=== PATIENT | female | born 1985 | race Caucasian/White ===

== ENCOUNTER → 2019-07-05 17:26 | Outpatient (BNVA) | payer MEDICARE, MEDICAID, SELFPAY | PROVIDERS: Family Provider Nurse Practitioner Family; PCP Nurse Practitioner Family; Visit Provider Emergency Medicine | DX: R05 Cough (principal); R68.89 Other general symptoms and signs | CPT/HCPCS: 71046; 87804 ==

== ENCOUNTER 2020-01-07 15:08 | Inpatient (IN) | payer MEDICARE, MEDICAID, SELFPAY ==
[2020-01-07 15:09] VITALS: BP 149/90; PULSE 83; RESP 18; TEMP 36.4; O2SAT 98; BMI 34.2
--- NOTE | 2020-01-07 15:24 | W.ED.PSYCH ---
Documented by User: IZZY Valentine 01/08/20 07:28 HPI - Psych General: Chief Complaint: Psychiatric Symptoms Stated Complaint: PSYCH EVAL Time Seen by Provider: 01/07/20 15:14 History of Present Illness: HPI Narrative: Patient is a 34-year-old female who comes to the ED for psych eval. Patient has a past medical history of psychosis, bipolar and delusional disorder. Patient says she has had trouble sleeping for a while now. She says she is very anxious. She is worried right now that someone is stealing her identity. She was very vague about her reasoning for why she thinks someone stole her identity and would not give any real details to me. She denies any auditory or visual hallucinations. She also denies any depression, SI or HI. [facility] called in report and stated that patient is being very paranoid and thinks that the government is after because she and [place] to obtain a green card. After being discharged from [facility] she obtained a criminal trespassing charge. They stated that patient's family is trying to obtain guardianship of patient because she is not safe at home. Associated symptoms: Reports delusions; Deny auditory hallucinations, visual hallucinations, homicidal ideation or suicidal ideation Review of Systems Const: Denies: fever(s), chills or fatigue Eyes: Denies: change in vision or eye discomfort ENMT: Denies: throat pain, odynophagia, nasal discharge or nasal congestion Card: Denies: chest pain, palpitations, edema, swelling of feet/ankles, dyspnea on exertion or orthopnea Resp: Denies: dyspnea, productive cough or non-productive cough GI: Denies: abdominal pain, nausea, vomiting, diarrhea, constipation or hematochezia : Denies: flank pain, dysuria or hematuria Musc: Denies: neck pain, back pain or extremity swelling Skin/Breast: Denies: rash or new lesions Neuro: Denies: headache(s), numbness in extremities or weakness in extremities Psych: Reports: anxiety, sleeping less, loss of interest and paranoia; Denies: visual hallucinations, auditory hallucinations, suicidal ideation or homicidal ideation PFS ED PFSH: Family History Mother Hypertension Father Hypertension Denies family history of Diabetes Stroke Social History Smoking and tobacco status: former smoker Physical Exam Const: COMMON NORMALS: patient oriented x3 HENMT: COMMON NORMALS: normocephalic HEAD & SCALP: normocephalic MOUTH: Normal oral and palatal mucosa present THROAT: posterior oropharynx normal and uvula midline Neck/C-Spine: COMMON NORMALS: supple GENERAL: Yes normal visual inspection Resp: COMMON NORMALS: normal respiratory effort, No retractions, No use of accessory muscles and clear to auscultation bilaterally AUSCULTATION: clear to auscultation bilaterally Cardio: COMMON NORMALS: regular rate, regular rhythm, S1 normal heart sound present, S2 normal heart sound present, No gallops present (Cardio), No clicks present (Cardio), No murmurs present (Cardio) and Peripheral pulses 2+ throughout RATE: regular rate RHYTHM: regular rhythm HEART SOUNDS: S1 normal heart sound present and S2 normal heart sound present PERIPHERAL PULSES: Peripheral pulses 2+ throughout GI: COMMON NORMALS: Normal to inspection, nondistended, normoactive bowel sounds present, Soft to palpation, non-tender and no masses INSPECTION: Yes central obesity PALPATION: Yes Soft to palpation : COMMON NORMALS: Yes no CVA tenderness BLADDER/KIDNEY EXAM: Yes no CVA tenderness Back/Pelvis: COMMON NORMALS: no CVA tenderness Extremity: COMMON NORMALS: normal to inspection Neuro: COMMON NORMALS: patient oriented x3 and moves all extremities Psych: COMMON NORMALS: Normal thought process present APPEARANCE: Yes grossly normal ATTITUDE: Yes Withdrawn affect present and Yes evasive ACTIVITY/MOTOR BEHAVIOR: Yes Avoids eye contact (attititude/behavior) SPEECH: Yes slow MOOD & AFFECT: Yes depressed mood and Yes Flat affect present THOUGHT PROCESS: Normal thought process present THOUGHT CONTENT: No Suicidality present, No Homicidality present and Yes delusions Delusional thought content details: paranoid ATTENTION/CONCENTRATION: Yes attention grossly intact MEMORY/COGNITION: Yes memory grossly intact and Yes cognition grossly intact INSIGHT: Fair insight present (Psych) JUDGEMENT: Fair judgement present (Psych) MDM - Psych MDM Narrative: Medical decision making narrative: Patient is a 34-year-old female comes to the ED for mental health evaluation. She has a past medical history of bipolar 1 disorder, psychosis and delusional disorder. Patient is currently very paranoid and thinks that somebody is trying to steal her identity. She was also recently hospitalized at [facility] for psych complaint and when she was discharged from hospital she ended up getting a criminal trespassing charge. Patient's family is currently trying to obtain guardianship because she is not safe at home by herself. Patient knows that she needs to get some help and is willing to be admitted. I contacted Dr. Sandoval and discussed patient's case with him. He agreed to have patient admitted in the NPU. I told Dr. Rice about patient case and that Dr. Sandoval would like patient mated to the NPU and she will be placing the admitting orders. Lab Data: Attestation: I reviewed the patient's lab results. Labs: Lab Results 01/07/20 01/07/20 01/07/20 Range/Units 15:35 15:48 15:48 WBC 7.6 (4.0-10.0) 10^3/ uL RBC 4.39 (4.1-5.3) 10^6/u L Hgb 12.0 (11.5-15.3) g/dL Hct 38.6 (37.0-47.0) % MCV 87.9 (81-99) fL MCH 27.3 L (28.0-34.0) pg MCHC 31.1 (30.0-36.0) g/dL RDW 15.2 H (12.1-15.1) % Plt Count 318 (130-400) 10^3/c mm MPV 11.0 H (7.4-10.4) fL Neut % (Auto) 66.1 % Lymph % (Auto) 22.0 % [place] % (Auto) 8.5 % Eos % (Auto) 2.4 % Baso % (Auto) 0.9 % Neut # (Auto) 4.99 (1.8-7.7) 10^3/u L Lymph # (Auto) 1.7 (0.8-4.8) 10^3/u L [place] # (Auto) 0.6 (0.2-0.9) 10^3/u L Eos # (Auto) 0.2 (0.0-0.8) 10^3/u L Baso # (Auto) 0.1 (0.0-0.1) 10^3/u L Nucleated RBC % (a uto) 0 % Nucleated RBCs # 0.0 /100WBC Sodium 141 (136-145) mmol/L Potassium 3.7 (3.5-5.1) mmol/L Chloride 107 (98-107) mmol/L Carbon Dioxide 27 (22-29) mmol/L Anion Gap 10.7 (5-19) BUN 12 (6-20) mg/dL Creatinine 0.7 (0.5-0.9) mg/dL GFR Calculation 95.2 (90-130) mL/min Glucose 106 (65-115) mg/dL Calculated Osmolal ity 289 (285-295) mOsm/k g Calcium 9.6 (8.5-10.5) mg/dL Total Bilirubin 0.2 (0.15-1.2) mg/dL AST 18 (0-32) U/L ALT 24 (0-33) U/L Alkaline Phosphata se 53 (35-105) IU/L Total Protein 6.7 (6.6-8.7) g/dL Albumin 4.7 (3.5-5.2) g/dL Globulin 2.0 (1.3-4.6) g/dL TSH 2.39 (0.27-4.20) uIU/ mL HCG, Qual Negative (Negative) Salicylates < 0.3 L (3-10) mg/dL Acetaminophen < 5.0 L (10-30) ug/mL Ethyl Alcohol < 10 (0-10) mg/dL Discharge Plan Discharge Patient Disposition: Admitted As Inpatient Admit Provider: Jaime Sandoval Discharge Date/Time: 01/07/20 17:23 Coding Level of Care Code ED Matzo Forming Machine Operator for Chg Fwd Exam Comprehensive Documented by User: Cheryl Rice MD 01/11/20 20:23 HPI - Psych General: Chief Complaint: Psychiatric Symptoms Stated Complaint: PSYCH EVAL Time Seen by Provider: 01/07/20 15:14 PFSH ED PFSH: Family History Mother Hypertension Father Hypertension Denies family history of Diabetes Stroke Social History Smoking and tobacco status: former smoker MDM - Psych Lab Data: Labs: Lab Results 01/07/20 01/07/20 01/07/20 Range/Units 15:35 15:48 15:48 WBC 7.6 (4.0-10.0) 10^3/ uL RBC 4.39 (4.1-5.3) 10^6/u L Hgb 12.0 (11.5-15.3) g/dL Hct 38.6 (37.0-47.0) % MCV 87.9 (81-99) fL MCH 27.3 L (28.0-34.0) pg MCHC 31.1 (30.0-36.0) g/dL RDW 15.2 H (12.1-15.1) % Plt Count 318 (130-400) 10^3/c mm MPV 11.0 H (7.4-10.4) fL Neut % (Auto) 66.1 % Lymph % (Auto) 22.0 % [place] % (Auto) 8.5 % Eos % (Auto) 2.4 % Baso % (Auto) 0.9 % Neut # (Auto) 4.99 (1.8-7.7) 10^3/u L Lymph # (Auto) 1.7 (0.8-4.8) 10^3/u L [place] # (Auto) 0.6 (0.2-0.9) 10^3/u L Eos # (Auto) 0.2 (0.0-0.8) 10^3/u L Baso # (Auto) 0.1 (0.0-0.1) 10^3/u L Nucleated RBC % (a uto) 0 % Nucleated RBCs # 0.0 /100WBC Sodium 141 (136-145) mmol/L Potassium 3.7 (3.5-5.1) mmol/L Chloride 107 (98-107) mmol/L Carbon Dioxide 27 (22-29) mmol/L Anion Gap 10.7 (5-19) BUN 12 (6-20) mg/dL Creatinine 0.7 (0.5-0.9) mg/dL GFR Calculation 95.2 (90-130) mL/min Glucose 106 (65-115) mg/dL Calculated Osmolal ity 289 (285-295) mOsm/k g Calcium 9.6 (8.5-10.5) mg/dL Total Bilirubin 0.2 (0.15-1.2) mg/dL AST 18 (0-32) U/L ALT 24 (0-33) U/L Alkaline Phosphata se 53 (35-105) IU/L Total Protein 6.7 (6.6-8.7) g/dL Albumin 4.7 (3.5-5.2) g/dL Globulin 2.0 (1.3-4.6) g/dL TSH 2.39 (0.27-4.20) uIU/ mL HCG, Qual Negative (Negative) Salicylates < 0.3 L (3-10) mg/dL Acetaminophen < 5.0 L (10-30) ug/mL Ethyl Alcohol < 10 (0-10) mg/dL Discharge Plan Discharge Patient Disposition: Admitted As Inpatient Admit Provider: Jaime Sandoval Discharge Date/Time: 01/07/20 17:23 Coding Level of Care Code ED Matzo Forming Machine Operator for Chg Fwd Exam Comprehensive
[2020-01-07 15:56] LABS: Basophils # 0.1 10^3/uL (0.0-0.1); Basophils % 0.9 %; Eosinophils # 0.2 10^3/uL (0.0-0.8); Eosinophils % 2.4 %; Hematocrit 38.6 % (37.0-47.0); Lymphocytes # 1.7 10^3/uL (0.8-4.8); Mean Corpuscular HGB Conc 31.1 g/dL (30.0-36.0); Mean Corpuscular Hemoglobin 27.3 pg (28.0-34.0); Mean Corpuscular Volume 87.9 fL (81-99); Monocytes # 0.6 10^3/uL (0.2-0.9); Monocytes % 8.5 %; Neutrophils # 4.99 10^3/uL (1.8-7.7); Neutrophils % 66.1 %; Nucleated Red Blood Cells % 0 %; Platelet Count 318 10^3/cmm (130-400); Red Blood Count 4.39 10^6/uL (4.1-5.3); Red Cell Distribution Width 15.2 % (12.1-15.1); White Blood Count 7.6 10^3/uL (4.0-10.0)
[2020-01-07 16:10] LABS: HCG Qualitative Urine. Negative (Negative)
[2020-01-07 16:22] LABS: Alanine Aminotransferase 24 U/L (0-33); Albumin Level 4.7 g/dL (3.5-5.2); Alkaline Phosphatase 53 IU/L (35-105); Anion Gap 10.7 (5-19); Aspartate Amino Transferase 18 U/L (0-32); Blood Urea Nitrogen 12 mg/dL (6-20); Calcium 9.6 mg/dL (8.5-10.5); Carbon Dioxide 27 mmol/L (22-29); Chloride 107 mmol/L (98-107); Glomerular Filtration Rate 95.2 mL/min (90-130); Glucose 106 mg/dL (65-115); Osmolality Calculated 289 mOsm/kg (285-295); Potassium 3.7 mmol/L (3.5-5.1); Sodium 141 mmol/L (136-145); Thyroid Stimulating Hormone 2.39 uIU/mL (0.27-4.20); Total Bilirubin 0.2 mg/dL (0.15-1.2); Total Protein 6.7 g/dL (6.6-8.7)
[2020-01-07 16:46] LABS: Acetaminophen < 5.0 ug/mL (10-30); Alcohol Level < 10 mg/dL (0-10); Salicylate < 0.3 mg/dL (3-10)
[2020-01-07 16:55] VITALS: BP 136/92; PULSE 77; RESP 16; O2SAT 98
[2020-01-07 17:38] VITALS: BP 143/94; PULSE 78; RESP 18; TEMP 37.2; O2SAT 97
[2020-01-07 20:54] VITALS: BP 133/85; PULSE 71; RESP 18; TEMP 37; O2SAT 95
[2020-01-08 06:00] VITALS: BP 122/77; PULSE 67; RESP 18; TEMP 36.9; O2SAT 97
[2020-01-08] MEDS: meloxicam 7.5 mg tablet PO (08:02)
[2020-01-08] MEDS: lamoTRIgine 100 mg Tablet PO (08:02)
[2020-01-08] MEDS: CLONazepam 0.5 mg Tablet PO ×2 (08:02→17:49)
[2020-01-08] MEDS: diphenhydrAMINE 25 mg Capsule PO (08:05)
[2020-01-08 14:00] VITALS: BP 146/94; PULSE 75; RESP 16; TEMP 36.9; O2SAT 96
[2020-01-08 20:15] VITALS: BP 129/81; PULSE 80; RESP 15; TEMP 36.9; O2SAT 95
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
[2020-01-08] MEDS: trazodone 50 mg Tablet PO (22:43)
[2020-01-09 05:55] VITALS: BP 136/88; PULSE 82; RESP 20; TEMP 36.9; O2SAT 99
[2020-01-09] MEDS: ziprasidone hcl 20 mg Capsule PO ×2 (06:22→17:22)
[2020-01-09] MEDS: diphenhydrAMINE 25 mg Capsule PO ×2 (07:01→17:21)
--- NOTE | 2020-01-09 07:02 | PC.NURSE ---
RASH PT CAME TO NURSES STATION STATING SHE HAD A RASH AND IT WAS GETTING WORSE. PER ALEJANDRO FROM DR OLIVAREZ PT GIVEN BENADRYL [address] OLIVAREZ WILL CONSULT HOSPITALIST.
[2020-01-09] MEDS: lamoTRIgine 100 mg Tablet PO (08:31)
[2020-01-09] MEDS: meloxicam 7.5 mg tablet PO (08:31)
[2020-01-09] MEDS: CLONazepam 0.5 mg Tablet PO ×2 (08:31→17:22)
--- NOTE | 2020-01-09 11:15 | PC.SOCIAL ---
received phone call from Mallory Saldana [phone]. She asked this worker if patient is on a voluntary hold or not. Parents requested involuntary hold. It was stated that [facility] is handling the case.
[2020-01-09 14:00] VITALS: BP 146/95; PULSE 82; RESP 18; TEMP 36.8; O2SAT 94
--- NOTE | 2020-01-09 18:51 | P.PN_ITS ---
Subjective NPU Subjective: Interval history: The patient is transformed today. One day back on meds and she is actually able to smile between the tears! We talked about her medication and how essential it is to her wellbeing. She is very grateful. Medications: Reviewed: Yes Medication Review Details: Current Medications Acetaminophen (Tylenol) 650 mg PO Q4H PRN PRN Reason: MILD PAIN Benztropine Mesylate (Cogentin) 1 mg PO BID PRN PRN Reason: Mild Extrapyramidal symptoms Camphor/Menthol/Phenol (Blistex) 1 applic TOPICAL Q1H PRN PRN Reason: DRYNESS Clonazepam (Klonopin) 0.5 mg PO BID [facility] Last Admin: 01/09/20 17:22 Dose: 0.5 mg Documented by: Diphenhydramine HCl (Benadryl) 50 mg IM ONCE PRN PRN Reason: Severe Extrapyramidal Symptoms Diphenhydramine HCl (Benadryl) 50 mg IM Q4H PRN PRN Reason: Severe Aggression Diphenhydramine HCl (Benadryl) 25 mg PO BID [facility] Last Admin: 01/09/20 17:21 Dose: 25 mg Documented by: Haloperidol (Haldol) 5 mg PO Q4H PRN PRN Reason: AGITATION Haloperidol Lactate (Haldol Inj) 5 mg IM Q4H PRN PRN Reason: Severe Aggression Hydroxyzine Pamoate (Vistaril) 50 mg PO Q6H PRN PRN Reason: ANXIETY Lamotrigine (Lamictal) 100 mg PO DAILY [facility] Last Admin: 01/09/20 08:31 Dose: 100 mg Documented by: Levothyroxine Sodium 112 mcg/ (Levothyroxine Sodium 25 mcg) 137 mcg PO 0700 [facility] Last Admin: 01/09/20 06:22 Dose: 137 mcg Documented by: Loperamide HCl (Imodium Capsule) 2 mg PO Q6H PRN PRN Reason: DIARRHEA Lorazepam (Ativan) 2 mg IM Q4H PRN PRN Reason: Severe Aggression Lorazepam (Ativan) 1 mg PO Q4H PRN PRN Reason: ANXIETY Meloxicam (Mobic) 7.5 mg PO DAILY [facility] Last Admin: 01/09/20 08:31 Dose: 7.5 mg Documented by: Nicotine (Nicoderm 21 Mg Patch) 1 patch TRANSDERMA DAILY PRN PRN Reason: NICOTINE WITHDRAWAL Nicotine Polacrilex (Nicorette) 2 mg BUCCAL Q2H PRN PRN Reason: NICOTINE WITHDRAWAL Olanzapine (Zyprexa Zydis) 5 mg PO Q4H PRN PRN Reason: Agitation/Psychosis Ondansetron HCl (Zofran) 4 mg PO Q6H PRN PRN Reason: NAUSEA AND VOMITING Trazodone HCl (Desyrel) 50 mg PO BEDTIME PRN PRN Reason: SLEEP Last Admin: 01/08/20 22:43 Dose: 50 mg Documented by: Ziprasidone (Geodon) 20 mg PO 0700,1700 [facility] Last Admin: 01/09/20 17:22 Dose: 20 mg Documented by: Mental Status Exam MSE Comments: This is a 34-year-old female who presents at her stated age. She is neat and clean but is very different today. She is no longer so deeply depressed and the tears are of gratitude and parish. Thought processes are still slow but not filled with delusional material. She no longer thinks the FBI or the NSA he has any interest in her. She is planning to dump her [place] and says, I can recover. It is definitely an epiphany for her. She denies any suicidal or homicidal ideation, plan or intent. What a difference a day makes! Vitals/I&O/Wt Last Vital Signs Temp 98.2 F 01/09/20 14:00 Pulse 82 01/09/20 14:00 Resp 18 01/09/20 14:00 BP 146/95 01/09/20 14:00 Pulse Ox 94 01/09/20 14:00 Physical Exam Narrative: EXAM NARRATIVE: Resp: normal respiratory effort, No retractions, No use of accessory muscles and clear to auscultation bilaterally Cardio: regular rate, regular rhythm, S1 normal heart sound present, S2 normal heart sound present, No gallops present (Cardio), No clicks present (Cardio), No murmurs present (Cardio) and Peripheral pulses 2+ throughout RATE: regular rate RHYTHM: regular rhythm HEART SOUNDS: S1 normal heart sound present and S2 normal heart sound present GI: Normal to inspection, non-distended, normoactive bowel sounds present, Soft to palpation, non-tender and no masses INSPECTION: central obesity : no CVA tenderness Back/Pelvis: no paraspinal tenderness. No scoliosis. Extremity: normal to inspection. Neuro: patient oriented x3 and moves all extremities. Data NPU : 01/07/20 15:48 01/07/20 15:48 A&P Assessment and plan (1) Psychotic depression: The psychosis is the suazo element. Ziprasidone suppressed it. Status: Acute Involuntary Hold Information 96 Hour Hold: 96 Hour Involuntary Admission: No Attestations NPU Medical Necessity Statement*: I anticipate 5-7 midnights additional stay. Time Spent in Patient Care: Greater than 35 minutes (>than 50% of time spent in counselling and/or direct pt care on unit) . We spent a lot of time about Hope and the ability to recover. I explained the importance of her medication and the damage which her noncompliance has done. Coding Level of Care Code Acute Desk Monitor for Dea Kay Diagnoses Psychotic depression F32.3
[2020-01-09] MEDS: hyDROXYzine 25 mg Capsule 50 MG PO (21:18)
[2020-01-09] MEDS: trazodone 50 mg Tablet PO (21:19)
[2020-01-09 22:00] VITALS: BP 151/97; PULSE 77; RESP 15; TEMP 36.8; O2SAT 97
[2020-01-09] MEDS: OLANZapine 5 mg ODT PO (22:49)
[2020-01-10] MEDS: LORazepam 1 mg Tablet PO (00:45)
[2020-01-10 06:00] VITALS: BP 133/83; PULSE 66; RESP 16; TEMP 36.9; O2SAT 94
[2020-01-10] MEDS: ziprasidone hcl 20 mg Capsule PO ×2 (06:12→17:05)
[2020-01-10] MEDS: diphenhydrAMINE 25 mg Capsule PO ×2 (08:20→17:05)
[2020-01-10] MEDS: CLONazepam 0.5 mg Tablet PO ×2 (08:20→17:05)
[2020-01-10] MEDS: lamoTRIgine 100 mg Tablet PO (08:20)
[2020-01-10] MEDS: meloxicam 7.5 mg tablet PO (08:20)
[2020-01-10] MEDS: hyDROXYzine 25 mg Capsule 50 MG PO ×2 (12:50→22:06)
--- NOTE | 2020-01-10 12:51 | PC.NURSE ---
PRN Visteril 50mg PO given for anxiety. Patient requests to see a social work specialist for discharge planning
[2020-01-10 14:00] VITALS: BP 115/72; PULSE 67; RESP 18; TEMP 37.1; O2SAT 96
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
--- NOTE | 2020-01-10 16:57 | PC.SOCIAL ---
important message for medicare provided
[2020-01-10 20:38] VITALS: BP 132/88; PULSE 73; RESP 16; TEMP 36.7; O2SAT 98
[2020-01-10] MEDS: OLANZapine 5 mg ODT PO (22:06)
[2020-01-11 06:00] VITALS: BP 119/78; PULSE 65; RESP 13; TEMP 36.3; O2SAT 95
[2020-01-11] MEDS: ziprasidone hcl 20 mg Capsule PO (06:55)
[2020-01-11] MEDS: diphenhydrAMINE 25 mg Capsule PO ×2 (08:32→17:50)
[2020-01-11] MEDS: CLONazepam 0.5 mg Tablet PO ×2 (08:32→17:50)
[2020-01-11] MEDS: lamoTRIgine 100 mg Tablet PO (08:32)
[2020-01-11] MEDS: meloxicam 7.5 mg tablet PO (08:32)
--- NOTE | 2020-01-11 11:03 | P.PN_ITS ---
Subjective NPU Subjective: Interval history: The patient presents today really focused on her arms. She does have a rash that is mostly in maculopapular patterns, but there is some that are in a line or whatever. It is not really clear what is causing them. She endorses they are on her arms and legs, but not that are sparing her torso. They are somewhat itchy. She reports a concern with them spreading. She has never had it before and is not really sure what is going on. We discussed getting her some kind of cream to help with the itching. We reviewed the fact that we were planning on increasing her Geodon today, and she denied having an issue with that. Mental Status Exam MSE Comments: This is an obese, white female, with adequate dress, limited grooming, and eye contact. No abnormal movements except for psychomotor retardation. Semi-cooperative with exam in no acute distress. Speech was decreased rate and volume. Mood described as OK; affect guarded. Thought process, organized. Thought content: patient denied any suicidal or homicidal ideation, there were no delusions reported but there are paranoid and persecutory delusions endorsed. She denies auditory or visual hallucinations. Attention and concentration appear intact. Memory is unreliable but none were formally tested. Alert and oriented times person and place. Insight and judgment are impaired. Vitals/I&O/Wt Last Vital Signs Temp 97.8 F 01/11/20 22:00 Pulse 62 01/11/20 22:00 Resp 18 01/11/20 22:00 BP 142/96 01/11/20 22:00 Pulse Ox 98 01/11/20 22:00 Data NPU : 01/07/20 15:48 01/07/20 15:48 A&P Additional A&P Information (1) Psychotic depression: Additional A&P Information This is a 34 year old, white female, with schizoaffective disorder, who presents with confusion to pre-hospital events, but being adherent to the medication here on the unit. Continue current medication except: Increase Geodon to 40 mg po bid. Continue q 15-minute checks for safety. Encourage individual, group, and milieu therapy. Involuntary Hold Information 96 Hour Hold: 96 Hour Involuntary Admission: No Attestations NPU Medical Necessity Statement*: Inpatient hospitalization is medically necessary and the clinically appropriate intervention at this time. We will monitor medications and titrate as indicated. Likely length of stay four to six days. Coding Level of Care Code Acute Returned Goods Sorter for Dea Kay
[2020-01-11] MEDS: OLANZapine 5 mg ODT PO ×2 (11:16→22:29)
--- NOTE | 2020-01-11 11:26 | PC.NURSE ---
PRN Zyprexa Zydis 5MG PO given for anxiety, agitation.
[2020-01-11 14:00] VITALS: BP 129/86; PULSE 66; RESP 20; TEMP 36.7; O2SAT 98
[2020-01-11] MEDS: LORazepam 1 mg Tablet PO ×3 (14:12→22:29)
--- NOTE | 2020-01-11 14:12 | PC.NURSE ---
PRN ATIVAN ATIVAN 1MG PO PER PATIENT C/O ANXIETY. WILL CONTINUE TO MONITOR FOR MEDICATION EFFECTIVENESS.
--- NOTE | 2020-01-11 15:15 | PC.NURSE ---
PRN ATIVAN FOLLOW UP MEDICATION EFFECTIVE. NO FURTHER C/O ANXIETY.
--- NOTE | 2020-01-11 18:06 | PC.NURSE ---
PRN ATIVAN 1MG PO GIVEN FOR INCREASED ANXIETY
[2020-01-11 22:00] VITALS: BP 142/96; PULSE 62; RESP 18; TEMP 36.6; O2SAT 98
[2020-01-11] MEDS: hyDROXYzine 25 mg Capsule 50 MG PO (22:29)
[2020-01-12 06:00] VITALS: BP 115/80; PULSE 80; RESP 17; TEMP 36.6; O2SAT 96
[2020-01-12] MEDS: LORazepam 1 mg Tablet PO ×3 (07:52→22:13)
[2020-01-12] MEDS: ziprasidone hcl 20 mg Capsule 40 MG PO ×2 (07:52→17:09)
--- NOTE | 2020-01-12 07:52 | PC.NURSE ---
PRN ATIVAN ATIVAN 1MG PO PER PATIENT C/O ANXIETY. WILL CONTINUE TO MONITOR FOR MEDICATION EFFECTIVENESS.
--- NOTE | 2020-01-12 09:00 | PC.NURSE ---
PRN ATIVAN FOLLOW UP MEDICATION EFFECTIVE. NO FURTHER C/O ANXIETY. PATIENT SITTING IN THE DAYROOM.
[2020-01-12] MEDS: lamoTRIgine 100 mg Tablet PO (09:20)
[2020-01-12] MEDS: diphenhydrAMINE 25 mg Capsule PO ×2 (09:20→17:09)
[2020-01-12] MEDS: meloxicam 7.5 mg tablet PO (09:20)
[2020-01-12] MEDS: CLONazepam 0.5 mg Tablet PO ×2 (09:20→17:09)
--- NOTE | 2020-01-12 12:35 | PM.NPN ---
Subjective NPU Subjective: Interval history: The patient presents today reporting that the cream for her arms is helpful. She denies any issues with the increase in the Geodon though she has only had one dose. She reports that she is okay, she is okay being here, and taking the medication until she is stabilized. We had a fairly lengthy discussion with an opportunity for her to ask questions and reflect. Shortly after out conversation was over, she requested to see me again. When I ultimately went back there, she was very much in the same mindset as she was when I met her the first day I was here with very firm accusations about why had she not been connected with someone who can get her audio/visual operator so she could view the videotapes, so that she could see where her car was, and any statement that I made that was not feeling like a full endorsement of her position, was met with firm questioning, resistance and anger, and guardedness, eyebrows raised why would you even think that type of response. Mental Status Exam MSE Comments: This is an obese, white female, with adequate dress, limited grooming, and eye contact. No abnormal movements except for psychomotor retardation. Semi-cooperative with exam in no acute distress. Speech was decreased rate and volume. Mood described as upset; affect guarded. Thought process, organized. Thought content: patient denied any suicidal or homicidal ideation, there were no delusions reported but there are paranoid and persecutory delusions endorsed. She denies auditory or visual hallucinations. Attention and concentration appear intact. Memory is unreliable but none were formally tested. Alert and oriented times person and place. Insight and judgment are impaired. Vitals/I&O/Wt Last Vital Signs Temp 97.9 F 01/12/20 06:00 Pulse 80 01/12/20 06:00 Resp 17 01/12/20 06:00 BP 115/80 01/12/20 06:00 Pulse Ox 96 01/12/20 06:00 Weight last 48 hrs Weight 103.589 kg Data NPU : 01/07/20 15:48 01/07/20 15:48 A&P Additional A&P Information (1) Psychotic depression: Additional A&P Information This is a 34 year old, white female, with schizoaffective disorder, who presents with confusion to pre-hospital events, but being adherent to the medication here on the unit. Continue current medication except:. Continue q 15-minute checks for safety. Encourage individual, group, and milieu therapy. Involuntary Hold Information 96 Hour Hold: 96 Hour Involuntary Admission: No Attestations NPU Medical Necessity Statement*: Inpatient hospitalization is medically necessary and the clinically appropriate intervention at this time. We will monitor medications and titrate as indicated. Likely length of stay four to six days. Coding Level of Care Code Acute Cath Lab Technologist for Dea Kay
[2020-01-12 14:00] VITALS: BP 131/81; PULSE 76; RESP 17; TEMP 36.7
--- NOTE | 2020-01-12 14:20 | PC.NURSE ---
PRN ATIVAN ATIVAN 1MG PO PER PATIENT C/O ANXIETY. WILL CONTINUE TO MONITOR FOR MEDICATION EFFECTIVENESS.
--- NOTE | 2020-01-12 15:15 | PC.NURSE ---
PRN ATIVAN FOLLOW UP MEDICATION EFFECTIVE. NO FURTHER C/O ANXIETY.
[2020-01-12 22:00] VITALS: BP 135/84; PULSE 79; RESP 18; TEMP 36.9; O2SAT 91
[2020-01-12] MEDS: hydrocortisone 1% cream 28 gm 1 APPLIC TOPICAL (22:21)
[2020-01-13] MEDS: LORazepam 1 mg Tablet PO (02:19)
[2020-01-13 06:00] VITALS: BP 120/84; PULSE 63; RESP 17; TEMP 36.5; O2SAT 95
[2020-01-13] MEDS: ziprasidone hcl 20 mg Capsule 40 MG PO ×2 (07:52→16:42)
[2020-01-13] MEDS: CLONazepam 0.5 mg Tablet PO ×2 (07:52→16:42)
[2020-01-13] MEDS: lamoTRIgine 100 mg Tablet PO (07:53)
[2020-01-13] MEDS: diphenhydrAMINE 25 mg Capsule PO ×2 (07:53→16:42)
[2020-01-13] MEDS: meloxicam 7.5 mg tablet PO (07:53)
[2020-01-13] MEDS: OLANZapine 5 mg ODT PO (09:17)
[2020-01-13] MEDS: benztropine 1 mg Tablet PO (11:14)
--- NOTE | 2020-01-13 11:14 | PC.NURSE ---
Patient PRN Patient stated here muscles were twitching. Dr Santana ordered to give her 1 MG Cogentin po.
--- NOTE | 2020-01-13 13:36 | PM.NPN ---
Subjective NPU Subjective: Interval history: Kenan presents today continuing to struggle with her paranoia. She finds it very hard to even speak to this senior technical writer. But just yesterday, she had her first full day of the 40 mg of Geodon. She denies any side effects, but also is not showing much improvement. She did not speak to Shashi, when she approached her, prior to leaving on Tuesday. So, she is very upset today, reporting that we did not work with her to find out if the brake reliner stole her car, [facility] stole her car, or what was going on. She was continuing to suggest that we were somehow not respecting her situation. We were able to get her to promise me that, instead of avoiding Shashi tomorrow, that she would talk to her, as she is the person that would be a part of the things that she was talking about, because she was saying she wanted to talk to the technical planner. When Shashi did not immediately respond to being ?the technical planner? she got very paranoid and did not want to speak to her. Additionally, she endorses that the hydrocortisone that I ordered for her rash, on her arms and legs, has given her significant relief; and she reports that is less of a problem, at this point. Mental Status Exam MSE Comments: This is an obese, white female, with adequate dress, limited grooming, and eye contact. No abnormal movements except for psychomotor retardation. Semi-cooperative with exam in no acute distress. Speech was decreased rate and volume. Mood described as fine; affect guarded. Thought process, organized. Thought content: patient denied any suicidal or homicidal ideation, there were no delusions reported but there are paranoid and persecutory delusions endorsed. She denies auditory or visual hallucinations. Attention and concentration appear intact. Memory is unreliable but none were formally tested. Alert and oriented times person and place. Insight and judgment are impaired. Vitals/I&O/Wt Last Vital Signs Temp 97.7 F 01/13/20 06:00 Pulse 87 01/13/20 06:00 Resp 14 01/13/20 06:00 BP 137/96 01/13/20 06:00 Pulse Ox 96 01/13/20 06:00 Weight last 48 hrs Weight 103.589 kg Data NPU : 01/07/20 15:48 01/07/20 15:48 A&P Additional A&P Information (1) Psychotic depression: Additional A&P Information This is a 34 year old, white female, with schizoaffective disorder, who presents with confusion to pre-hospital events, but being adherent to the medication here on the unit. Continue current medication. Continue q 15-minute checks for safety. Encourage individual, group, and milieu therapy. Involuntary Hold Information 96 Hour Hold: 96 Hour Involuntary Admission: No Attestations NPU Medical Necessity Statement*: Inpatient hospitalization is medically necessary and the clinically appropriate intervention at this time. We will monitor medications and titrate as indicated. Likely length of stay four to six days. Coding Level of Care Code Acute Strategic Partnership Representative for Dea Kay
[2020-01-13 13:45] VITALS: BP 142/90; PULSE 106; RESP 18; TEMP 36.3
[2020-01-13 20:18] VITALS: BP 110/72; PULSE 66; RESP 13; TEMP 36.4; O2SAT 95
[2020-01-13] MEDS: hyDROXYzine 25 mg Capsule 50 MG PO (22:33)
[2020-01-14] MEDS: LORazepam 1 mg Tablet PO ×3 (00:43→20:35)
[2020-01-14 04:58] VITALS: BP 137/96; PULSE 87; RESP 14; TEMP 36.5; O2SAT 96
[2020-01-14] MEDS: ziprasidone hcl 20 mg Capsule 40 MG PO ×2 (06:04→17:17)
[2020-01-14] MEDS: CLONazepam 0.5 mg Tablet PO ×2 (08:59→17:16)
[2020-01-14] MEDS: meloxicam 7.5 mg tablet PO (08:59)
[2020-01-14] MEDS: diphenhydrAMINE 25 mg Capsule PO ×2 (08:59→17:16)
[2020-01-14] MEDS: lamoTRIgine 100 mg Tablet PO (08:59)
[2020-01-14 14:00] VITALS: BP 131/79; PULSE 71; RESP 20; TEMP 36.6; O2SAT 97
--- NOTE | 2020-01-14 14:46 | PC.NURSE ---
Addendum entered by Lilia Andrews LPN 01/14/20 15:39: MEDICATION EFFECTIVE. NO FURTHER C/O ANXIETY. Original Note: PRN ATIVAN ATIVAN 1MG PO PER PATIENT C/O ANXIETY. WILL CONTINUE TO MONITOR FOR MEDICATION EFFECTIVENESS.
--- NOTE | 2020-01-14 14:52 | P.PN_ITS ---
Subjective NPU Subjective: Interval history: Kenan presents today reporting that she feels a little better. She was able to talk to [place] and was able to identify some options she might have, but she is still not accepting of an explanation that she got confused and went somewhere and somehow her car is missing, and it was before she even engaged the hospital, because she reports that she has little recollection of that. She continues to reports that she understands that she needs to be here now, because she is on a voluntary commitment, and she wants to work with us to get her medications right. She understands that she is not functioning at her top capacity, but she does not really understand the nature of her deficiencies, at this point, and she does not understand how paranoid she it, even as we tried to discuss that. She reports that her arms are feeling a lot better, although the rash is still there. Otherwise, she showed a little less guardedness in the interview. No other major changes noted. Mental Status Exam MSE Comments: This is an obese, white female, with adequate dress, limited grooming, and eye contact. No abnormal movements except for psychomotor retardation. Semi-cooperative with exam in no acute distress. Speech was decreased rate and volume. Mood described as OK; affect guarded. Thought process, organized. Thought content: patient denied any suicidal or homicidal ideation, there were no delusions reported but there are paranoid and persecutory delusions endorsed. She denies auditory or visual hallucinations. Attention and concentration appear intact. Memory is unreliable but none were formally tested. Alert and oriented times person and place. Insight and judgment are impaired. Vitals/I&O/Wt Last Vital Signs Temp 98.6 F 01/14/20 20:00 Pulse 105 H 01/14/20 20:00 Resp 20 H 01/14/20 20:00 BP 114/76 01/14/20 20:00 Pulse Ox 98 01/14/20 20:00 Weight last 48 hrs Weight 103.589 kg Data NPU : 01/07/20 15:48 01/07/20 15:48 A&P Additional A&P Information (1) Psychotic depression: Additional A&P Information This is a 34 year old, white female, with schizoaffective disorder, who presents with confusion to pre-hospital events, but being adherent to the medication here on the unit. Continue current medication. Continue q 15-minute checks for safety. Encourage individual, group, and milieu therapy. Involuntary Hold Information 96 Hour Hold: 96 Hour Involuntary Admission: No Attestations NPU Medical Necessity Statement*: Inpatient hospitalization is medically necessary and the clinically appropriate intervention at this time. We will monitor medications and titrate as indicated. Likely length of stay four to six days. Coding Level of Care Code Acute Promotor Group Ticket Sales for Dea Kay
[2020-01-14 20:00] VITALS: BP 114/76; PULSE 105; RESP 20; TEMP 37; O2SAT 98
[2020-01-14] MEDS: trazodone 50 mg Tablet PO (20:35)
--- NOTE | 2020-01-14 21:51 | PC.NURSE ---
PRN ATIVAN & TRAZODONE ADMINISTERED ATIVAN 1 MG & TRAZODONE 50 MG PO FOR PT C/O INCREASING ANXIETY AND SLEEP AID.
[2020-01-14] MEDS: hydrocortisone 1% cream 28 gm 1 APPLIC TOPICAL (22:42)
[2020-01-15] MEDS: hyDROXYzine 25 mg Capsule 50 MG PO (02:35)
[2020-01-15 06:00] VITALS: BP 127/90; PULSE 83; RESP 20; TEMP 36.7; O2SAT 97
[2020-01-15] MEDS: ziprasidone hcl 20 mg Capsule 40 MG PO ×2 (06:12→17:34)
[2020-01-15] MEDS: meloxicam 7.5 mg tablet PO (08:20)
[2020-01-15] MEDS: lamoTRIgine 100 mg Tablet PO (08:20)
[2020-01-15] MEDS: diphenhydrAMINE 25 mg Capsule PO ×2 (08:20→17:34)
[2020-01-15] MEDS: CLONazepam 0.5 mg Tablet PO ×2 (08:20→17:34)
[2020-01-15 13:53] VITALS: BP 134/90; PULSE 86; RESP 18; TEMP 36.8; O2SAT 97
--- NOTE | 2020-01-15 17:58 | PM.NPN ---
Subjective NPU Subjective: Interval history: Kenan presented today endorsing that she is better, and endorsing impatience related to getting some explanation about her car. She continues to have significant paranoia, but is being more open to talking with this sign writer hand. She is talking with Shashi now, more regularly, as we try to figure out what is next. She is saying that she does not want to go back home, but we are talking about the fact that may be one of her few options, but we will explore it. We discussed the risks, benefits, and alternatives of increasing her medication again, specifically taking the Geodon to 60 mg po bid, as well as adding an evening dose to her Lamictal, including a discussion of the risk for Aguirre-Anupam syndrome. She understood and agreed to proceed as is documented in this note. She is eating fine and appearing to sleep well. Mental Status Exam MSE Comments: This is an obese, white female, with adequate dress, limited grooming, and eye contact. No abnormal movements except for psychomotor retardation. Semi-cooperative with exam in no acute distress. Speech was decreased rate and volume. Mood described as frustrated; affect guarded and congruent. Thought process, organized. Thought content: patient denied any suicidal or homicidal ideation, there were no delusions reported but there are paranoid and persecutory delusions endorsed. She denies auditory or visual hallucinations. Attention and concentration appear intact. Memory is unreliable but none were formally tested. Alert and oriented times person and place. Insight and judgment are impaired. Vitals/I&O/Wt Last Vital Signs Temp 97.5 F L 01/15/20 20:04 Pulse 72 01/15/20 20:04 Resp 15 01/15/20 20:04 BP 125/71 01/15/20 20:04 Pulse Ox 96 01/15/20 20:04 Data NPU : 01/07/20 15:48 01/07/20 15:48 A&P Additional A&P Information (1) Psychotic depression: Additional A&P Information This is a 34 year old, white female, with schizoaffective disorder, who presents with confusion to pre-hospital events, but being adherent to the medication here on the unit. Continue current medication. Will increase Geodon to 60 mg by mouth twice a day and Lamictal to 100 mg by mouth every morning and 50 mg by mouth every at bedtime tomorrow. Continue q 15-minute checks for safety. Encourage individual, group, and milieu therapy. Involuntary Hold Information 96 Hour Hold: 96 Hour Involuntary Admission: No Attestations NPU Medical Necessity Statement*: Inpatient hospitalization is medically necessary and the clinically appropriate intervention at this time. We will monitor medications and titrate as indicated. Likely length of stay 3-5 days. Coding Level of Care Code Acute Environmental Health And Safety Intern for Dea Kay
[2020-01-15 20:04] VITALS: BP 125/71; PULSE 72; RESP 15; TEMP 36.4; O2SAT 96
[2020-01-15] MEDS: trazodone 50 mg Tablet PO (22:29)
[2020-01-15] MEDS: LORazepam 1 mg Tablet PO (22:29)
[2020-01-15] MEDS: hydrocortisone 1% cream 28 gm 1 APPLIC TOPICAL (22:29)
--- NOTE | 2020-01-15 22:31 | PC.NURSE ---
PRN ATIVAN & TRAZODONE ADMINISTERED ATIVAN 1 MG & TRAZODONE 50 MG PO FOR PT C/O INCREASING ANXIETY AND SLEEP AID.
[2020-01-16 06:00] VITALS: BP 123/82; PULSE 74; RESP 18; TEMP 37; O2SAT 97
[2020-01-16] MEDS: ziprasidone hcl 20 mg Capsule 40 MG PO (06:29)
[2020-01-16] MEDS: diphenhydrAMINE 25 mg Capsule PO ×2 (08:46→17:12)
[2020-01-16] MEDS: ziprasidone hcl 20 mg Capsule PO (08:46)
[2020-01-16] MEDS: CLONazepam 0.5 mg Tablet PO ×2 (08:46→17:12)
[2020-01-16] MEDS: meloxicam 7.5 mg tablet PO (08:47)
[2020-01-16] MEDS: lamoTRIgine 100 mg Tablet PO (08:47)
--- NOTE | 2020-01-16 13:48 | PM.NPN ---
Subjective NPU Subjective: Interval history: Kenan presents today reporting that she is feeling frustrated that she has not talked to Shashi yet, however, she has spoken to her now, on a couple of occasions, and has not really obtained the information that she desired. Ultimately, I tried to discuss with her the fact that her belief about the events may be somewhat affected by her illness, which she is having limited willingness to believe. She did endorse continued improvement of the rash on her arms and it certainly looks less red and angry on both arms, at this time. I did not see her legs but she endorsed similar spots. She did give me permission to speak to her psychiatrist, and we got the number, and hopefully we will be able to utilize that information to identify what to do moving forward. She is sleeping well and eating okay. Mental Status Exam MSE Comments: This is an obese, white female, with adequate dress, limited grooming, and eye contact. No abnormal movements except for psychomotor retardation. Semi-cooperative with exam in no acute distress. Speech was decreased rate and volume. Mood described as OK; affect guarded and congruent. Thought process, organized. Thought content: patient denied any suicidal or homicidal ideation, there were no delusions reported but there are paranoid and persecutory delusions noted. She denies auditory or visual hallucinations. Attention and concentration appear intact. Memory is unreliable but none were formally tested. Alert and oriented times person and place. Insight and judgment are impaired. Vitals/I&O/Wt Last Vital Signs Temp 97.8 F 01/16/20 21:25 Pulse 95 01/16/20 21:25 Resp 16 01/16/20 21:25 BP 141/94 01/16/20 21:25 Pulse Ox 97 01/16/20 21:25 Data NPU : 01/07/20 15:48 01/07/20 15:48 A&P Additional A&P Information (1) Psychotic depression: Additional A&P Information This is a 34 year old, white female, with schizoaffective disorder, who presents with confusion to pre-hospital events, but being adherent to the medication here on the unit. Continue current medication. Continue q 15-minute checks for safety. Encourage individual, group, and milieu therapy. Involuntary Hold Information 96 Hour Hold: 96 Hour Involuntary Admission: No Attestations NPU Medical Necessity Statement*: Inpatient hospitalization is medically necessary and the clinically appropriate intervention at this time. We will monitor medications and titrate as indicated. Likely length of stay 3-5 days. Coding Level of Care Code Acute Multifocal Button Inspector for Dea Kay
[2020-01-16 14:00] VITALS: BP 125/69; PULSE 89; RESP 20; TEMP 36.9; O2SAT 96
[2020-01-16] MEDS: ziprasidone hcl 20 mg Capsule 60 MG PO (17:12)
[2020-01-16 21:25] VITALS: BP 141/94; PULSE 95; RESP 16; TEMP 36.6; O2SAT 97
[2020-01-16] MEDS: hyDROXYzine 25 mg Capsule 50 MG PO (21:48)
[2020-01-16] MEDS: trazodone 50 mg Tablet PO (21:48)
[2020-01-16] MEDS: LORazepam 1 mg Tablet PO (21:49)
[2020-01-16] MEDS: lamoTRIgine 25 mg Tablet 50 MG PO (21:49)
--- NOTE | 2020-01-16 21:52 | PC.NURSE ---
Visteril, lorazapam, trazodone given for sleep and anxiety,
[2020-01-17 06:00] VITALS: BP 129/82; PULSE 72; RESP 17; TEMP 36.8; O2SAT 98
[2020-01-17] MEDS: lamoTRIgine 100 mg Tablet PO (09:59)
[2020-01-17] MEDS: lamoTRIgine 25 mg Tablet 50 MG PO (10:00)
[2020-01-17] MEDS: meloxicam 7.5 mg tablet PO (10:00)
[2020-01-17] MEDS: CLONazepam 0.5 mg Tablet PO ×2 (10:00→17:56)
[2020-01-17] MEDS: diphenhydrAMINE 25 mg Capsule PO ×2 (10:01→17:56)
[2020-01-17] MEDS: ziprasidone hcl 20 mg Capsule 60 MG PO ×2 (10:02→15:51)
[2020-01-17] MEDS: blistex lip oint 7 gm Tube 1 APPLIC TOPICAL ×2 (11:59→15:50)
[2020-01-17 14:00] VITALS: BP 150/85; PULSE 91; RESP 18; TEMP 37; O2SAT 96
[2020-01-17] MEDS: LORazepam 1 mg Tablet PO (15:51)
--- NOTE | 2020-01-17 16:07 | P.PN_ITS ---
Subjective NPU Subjective: Interval history: Kenan presents today reporting that she is doing okay. She reports that she is feeling somewhat better. I did have an opportunity to speak to her psychiatrist, who said that she has had at least four hospitalizations this year. He said that, in general, when she goes to the hospital, it is fairly problematic in trying to get her to a place where she has enough improvement to leave. She gets very paranoid towards the staff, and others, making it very hard to treat her, but this has happened more times recently. He reports that there has been success with Clozaril, but she would not get the blood draws making it impossible to treat her with the Clozaril. We had a discussion about where to go from here and he endorsed agreement with this typewriter tester that either Abilify or Invega, as a long acting injectable, would be the appropriate option given her circumstance. Today it is notable that she is appearing less paranoid, and she identifies this. We discussed the risks, benefits, and alternatives of the recommendations of her psychiatrist and our current status quo. We agreed, given her history, to give her another day or so to see if this is the sign that we are turning the corner; if not she might be agreeable to those medications, identifying she is still on a voluntary commitment. Mental Status Exam MSE Comments: This is an obese, white female, with adequate dress, grooming, and eye contact. No abnormal movements except for psychomotor retardation. More cooperative with exam in no acute distress. Speech was decreased rate and volume. Mood described as a little better; affect less guarded and congruent. Thought process, organized. Thought content: patient denied any suicidal or homicidal ideation, there were no delusions reported but there are paranoid and persecutory delusions noted, but seeming less. She denies auditory or visual hallucinations. Attention and concentration appear intact. Memory is unreliable but none were formally tested. Alert and oriented times x 3. Insight and judgment are improving. Vitals/I&O/Wt Last Vital Signs Temp 98.3 F 01/17/20 06:00 Pulse 72 01/17/20 06:00 Resp 17 01/17/20 06:00 BP 129/82 01/17/20 06:00 Pulse Ox 98 01/17/20 06:00 Data NPU : 01/07/20 15:48 01/07/20 15:48 A&P Additional A&P Information (1) Psychotic depression: Additional A&P Information This is a 34 year old, white female, with schizoaffective disorder, who presents with confusion to pre-hospital events, but being adherent to the medication here on the unit. Continue current medication. Will consider Abilify or Invega if her improvement is not steady at this point. Continue q 15-minute checks for safety. Encourage individual, group, and milieu therapy. Involuntary Hold Information 96 Hour Hold: 96 Hour Involuntary Admission: No Attestations NPU Medical Necessity Statement*: Inpatient hospitalization is medically necessary and the clinically appropriate intervention at this time. We will monitor medications and titrate as indicated. Likely length of stay 3-5 days. Coding Level of Care Code Acute Religious Education Director for Dea Kay
[2020-01-17 20:40] VITALS: BP 165/93; PULSE 80; RESP 18; TEMP 36.6; O2SAT 96
[2020-01-17] MEDS: hyDROXYzine 25 mg Capsule 50 MG PO (21:23)
[2020-01-17] MEDS: trazodone 50 mg Tablet PO (21:24)
--- NOTE | 2020-01-18 04:12 | PC.NURSE ---
pt resting well so far this night. no behavior issues noted.
[2020-01-18 06:00] VITALS: BP 124/90; PULSE 81; RESP 18; TEMP 36.7; O2SAT 97
[2020-01-18] MEDS: CLONazepam 0.5 mg Tablet PO ×2 (08:37→17:52)
[2020-01-18] MEDS: diphenhydrAMINE 25 mg Capsule PO ×2 (08:37→17:52)
[2020-01-18] MEDS: meloxicam 7.5 mg tablet PO (08:37)
[2020-01-18] MEDS: lamoTRIgine 100 mg Tablet PO (08:37)
[2020-01-18] MEDS: lamoTRIgine 25 mg Tablet 50 MG PO (08:38)
[2020-01-18] MEDS: ziprasidone hcl 20 mg Capsule 60 MG PO ×2 (08:38→17:54)
[2020-01-18] MEDS: LORazepam 1 mg Tablet PO (12:57)
--- NOTE | 2020-01-18 12:57 | PC.NURSE ---
PRN ATIVAN ATIVAN 1MG PO PER PATIENT C/O ANXIETY. WILL CONTINUE TO MONITOR FOR MEDICATIONS EFFECTIVENESS.
[2020-01-18 14:00] VITALS: BP 132/83; PULSE 92; RESP 18; TEMP 36.9; O2SAT 95
--- NOTE | 2020-01-18 14:00 | PC.NURSE ---
PRN ATIVAN FOLLOW UP MEDICATION EFFECTIVE. NO FURTHER C/O ANXIETY.
--- NOTE | 2020-01-18 15:29 | P.PN_ITS ---
Subjective NPU Subjective: Interval history: Kenan presents today not much changed from yesterday. She had a conversation with Francie and was upset because her plan to possibly leave and go housesit for a patient who is currently discharging today, was met with the idea that it is not a good idea, because it is not. She reported not feeling like she was on her side, and when we began a discussion about not feeling she was improving, and bringing up her psychiatrist at [facility] in [place], she reports that she did not trust him, but then when I challenged her, because she had said that he was the only person she trusted the day before, she said that it was not him that she did not trust, it was [facility] that has a system there that is dangerous and so even though he is a good person, he will not be able to survive that system. We discussed the fact that this seems like we need to do something to help her out of this rut and discussed the risks, benefits, and alternatives of starting Invega. Initially she was resistant, but eventually she agreed to proceed as is documented in this note. Mental Status Exam MSE Comments: This is an obese, white female, with adequate dress, grooming, and eye contact. No abnormal movements except for psychomotor retardation. More cooperative with exam in no acute distress. Speech was decreased rate and volume. Mood described as not good; affect guarded and congruent. Thought process, organized. Thought content: patient denied any suicidal or homicidal ideation, there were no delusions reported but there are paranoid and persecutory delusions noted. She denies auditory or visual hallucinations. Attention and concentration appear intact. Memory is unreliable but none were formally tested. Alert and oriented times x 3. Insight and judgment are i mpaired. Vitals/I&O/Wt Last Vital Signs Temp 98.5 F 01/18/20 14:00 Pulse 92 01/18/20 14:00 Resp 18 01/18/20 14:00 BP 132/83 01/18/20 14:00 Pulse Ox 95 01/18/20 14:00 Data NPU : 01/07/20 15:48 01/07/20 15:48 A&P Additional A&P Information (1) Psychotic depression: Additional A&P Information This is a 34 year old, white female, with schizoaffective disorder, who presents with confusion to pre-hospital events, but being adherent to the medication here on the unit. Continue current medication. Start Invega 6mg po qdaily. Continue q 15-minute checks for safety. Encourage individual, group, and milieu therapy. Involuntary Hold Information 96 Hour Hold: 96 Hour Involuntary Admission: No Attestations NPU Medical Necessity Statement*: Inpatient hospitalization is medically necessary and the clinically appropriate intervention at this time. We will monitor medications and titrate as indicated. Likely length of stay 3-5 days. Coding Level of Care Code Acute Animal Nutrition Teacher for Dea Kay
[2020-01-18] MEDS: paliperidone ER 6 mg Tablet PO (17:53)
[2020-01-18 20:36] VITALS: BP 109/65; PULSE 66; RESP 15; TEMP 36.9; O2SAT 97
--- NOTE | 2020-01-18 21:31 | PC.NURSE ---
pt given PRN trazodone and vistaril per request.
[2020-01-18 22:00] VITALS: BP 109/65; PULSE 66; RESP 15; TEMP 36.9; O2SAT 97
[2020-01-19] MEDS: ziprasidone hcl 20 mg Capsule 60 MG PO ×2 (05:37→19:17)
[2020-01-19 06:00] VITALS: BP 124/87; PULSE 89; RESP 16; TEMP 37; O2SAT 96
[2020-01-19] MEDS: paliperidone ER 6 mg Tablet PO (08:44)
[2020-01-19] MEDS: diphenhydrAMINE 25 mg Capsule PO ×2 (08:44→19:18)
[2020-01-19] MEDS: lamoTRIgine 100 mg Tablet PO (08:44)
[2020-01-19] MEDS: lamoTRIgine 25 mg Tablet 50 MG PO (08:44)
[2020-01-19] MEDS: meloxicam 7.5 mg tablet PO (08:44)
[2020-01-19] MEDS: hyDROXYzine 25 mg Capsule 50 MG PO ×2 (08:45→21:41)
[2020-01-19] MEDS: OLANZapine 5 mg ODT PO (11:47)
--- NOTE | 2020-01-19 11:49 | PC.NURSE ---
patient requesting zyprexa for anxiety / agitation.
[2020-01-19 14:00] VITALS: BP 121/83; PULSE 82; RESP 18; TEMP 36.9
--- NOTE | 2020-01-19 16:12 | PM.NPN ---
Subjective NPU Subjective: Interval history: The patient presents today reporting that she is feeling a little better. She agrees that the Invega was helpful. We discussed the possibility of stepping back one of her medications. We talked about the fact that the Geosayda is in the same class, but after we discussed the risks, benefits, and alternatives, she had concerns about doing anything with the Josselin because Dr. Sandoval had said that it was critical in her improving, and I explained that is because it is an antipsychotic, which it appears she needs, but she understood and agreed to proceed as is documented in this note. She agreed that we would see how the medication goes, over the weekend, and that we would sit down on Tuesday, with the social work team, and try to make sure that she feels heard. Otherwise, she denied any significant issues. Mental Status Exam MSE Comments: This is an obese, white female, with adequate dress, grooming, and eye contact. No abnormal movements except for psychomotor retardation. More cooperative with exam in no acute distress. Speech was decreased rate and volume. Mood described as frustrated; affect guarded and congruent. Thought process, organized. Thought content: patient denied any suicidal or homicidal ideation, there were no delusions reported but there are paranoid and persecutory delusions noted. She denies auditory or visual hallucinations. Attention and concentration appear intact. Memory is unreliable but none were formally tested. Alert and oriented times x 3. Insight and judgment are impaired. Vitals/I&O/Wt Last Vital Signs Temp 98.6 F 01/19/20 06:00 Pulse 89 01/19/20 06:00 Resp 16 01/19/20 06:00 BP 124/87 01/19/20 06:00 Pulse Ox 96 01/19/20 06:00 Weight last 48 hrs Weight 102.739 kg Data NPU : 01/07/20 15:48 01/07/20 15:48 A&P Additional A&P Information (1) Psychotic depression: Additional A&P Information This is a 34 year old, white female, with schizoaffective disorder, who presents with confusion to pre-hospital events, but being adherent to the medication here on the unit. Continue current medication. Continue q 15-minute checks for safety. Encourage individual, group, and milieu therapy. Involuntary Hold Information 96 Hour Hold: 96 Hour Involuntary Admission: No Attestations NPU Medical Necessity Statement*: Inpatient hospitalization is medically necessary and the clinically appropriate intervention at this time. We will monitor medications and titrate as indicated. Likely length of stay 4-6 days. Coding Level of Care Code Acute Senior Property Manager for Dea Kay
[2020-01-19] MEDS: trazodone 50 mg Tablet PO (21:41)
[2020-01-19 22:00] VITALS: BP 144/98; PULSE 100; RESP 18; TEMP 36.8; O2SAT 94
[2020-01-19] MEDS: benztropine 1 mg Tablet PO (23:48)
--- NOTE | 2020-01-20 00:51 | PC.NURSE ---
per pt request, pt was given PRN meds trazodone and vistaril at HS and at 2348, pt requested cogentin.
[2020-01-20] MEDS: ziprasidone hcl 20 mg Capsule 60 MG PO ×2 (05:51→17:38)
[2020-01-20 06:00] VITALS: BP 129/87; PULSE 95; RESP 17; TEMP 36.7; O2SAT 96
[2020-01-20] MEDS: lamoTRIgine 25 mg Tablet 50 MG PO (09:41)
[2020-01-20] MEDS: meloxicam 7.5 mg tablet PO (09:41)
[2020-01-20] MEDS: diphenhydrAMINE 25 mg Capsule PO ×2 (09:41→17:38)
[2020-01-20] MEDS: paliperidone ER 6 mg Tablet PO (09:41)
[2020-01-20] MEDS: lamoTRIgine 100 mg Tablet PO (09:41)
--- NOTE | 2020-01-20 10:12 | P.PN_ITS ---
Subjective NPU Subjective: Interval history: Kenan continues to present perseverative about what happened to her car, and the actual circumstances that got her to the hospital, and not the fact that she is in the hospital, and she is having very little insight into her level of dysfunction. She and I agreed that tomorrow we would have an opportunity to sit down with Shashi and try to discuss some of these issues. She is not seeming as despondent and sad, but she is still frustrated, and she is still not appreciating the level of confusion and psychosis that she is experiencing. She is not demanding to leave, and continues to be embracing of treatment; but she also is focused on resources, saying that she does not want to go back home, and that she is going to need case management and assistance, given where she is functioning at this point, to which I agreed. She is eating alright and sleeping well. Mental Status Exam MSE Comments: This is an obese, white female, with adequate dress, grooming, and eye contact. No abnormal movements except for improving psychomotor retardation. More cooperative with exam in no acute distress. Speech was decreased rate and volume. Mood described as frustrated; affect guarded and congruent. Thought process, organized. Thought content: patient denied any suicidal or homicidal ideation, there were no delusions reported but there are paranoid and persecutory delusions noted. She denies auditory or visual hallucinations. Attention and concentration appear intact. Memory is unreliable but none were formally tested. Alert and oriented times x 3. Insight and judgment are impaired. Vitals/I&O/Wt Last Vital Signs Temp 98.0 F 01/20/20 06:00 Pulse 95 01/20/20 06:00 Resp 17 01/20/20 06:00 BP 129/87 01/20/20 06:00 Pulse Ox 96 01/20/20 06:00 Weight last 48 hrs Weight 102.739 kg Data NPU : 01/07/20 15:48 01/07/20 15:48 A&P Additional A&P Information (1) Psychotic depression: Additional A&P Information This is a 34 year old, white female, with schizoaffective disorder, who presents with confusion to pre-hospital events, but being adherent to the medication here on the unit. Continue current medication. Continue q 15-minute checks for safety. Encourage individual, group, and milieu therapy. Involuntary Hold Information 96 Hour Hold: 96 Hour Involuntary Admission: No Attestations NPU 2 Medical Necessity Statement*: Inpatient hospitalization is medically necessary and the clinically appropriate intervention at this time. We will monitor medica tions and titrate as indicated. Likely length of stay 4-6 days. Coding Level of Care Code Acute Disaster Recovery Analyst for Dea Kay
[2020-01-20 14:00] VITALS: BP 134/86; PULSE 98; RESP 18; TEMP 37.1; O2SAT 98
[2020-01-20] MEDS: OLANZapine 5 mg ODT PO (20:47)
[2020-01-20] MEDS: trazodone 50 mg Tablet PO (20:47)
[2020-01-20 21:35] VITALS: BP 129/85; PULSE 72; RESP 20; TEMP 36.8; O2SAT 95
--- NOTE | 2020-01-20 22:19 | PC.NURSE ---
Visteril and Zyprexa given for sleep and anxiety.
[2020-01-21] MEDS: benztropine 1 mg Tablet PO (02:11)
[2020-01-21 06:00] VITALS: BP 135/89; PULSE 107; RESP 20; TEMP 36.6; O2SAT 98
[2020-01-21] MEDS: ziprasidone hcl 20 mg Capsule 60 MG PO ×2 (06:55→18:08)
[2020-01-21] MEDS: paliperidone ER 6 mg Tablet PO (08:18)
[2020-01-21] MEDS: diphenhydrAMINE 25 mg Capsule PO ×2 (08:18→18:08)
[2020-01-21] MEDS: lamoTRIgine 25 mg Tablet 50 MG PO (08:18)
[2020-01-21] MEDS: lamoTRIgine 100 mg Tablet PO (08:18)
[2020-01-21] MEDS: meloxicam 7.5 mg tablet PO (08:18)
[2020-01-21 14:00] VITALS: BP 143/86; PULSE 100; RESP 18; TEMP 37; O2SAT 97
--- NOTE | 2020-01-21 16:38 | PM.NPN ---
Subjective NPU Subjective: Interval history: Kenan presents today in a session with this marketing writer and adding a social contact worker. We had a fairly length conversation about her stay in the hospital, and what she can expect from a standpoint of when she will be discharged, as well as conversation about her psychosis, the medications, and the issues that she has been really struggling with surrounding her car and things of that nature. She was able to express herself and also demonstrate some clear improvement in her condition, but also the disability that remains. We gave her some indication of how the decision is made of when a person stays and when they can discharge and also answered some questions she had about a recent patient who had been discharged, who had made an offer for her to come and stay at that patient?s house, and why we have concerns about those kinds of plans. Otherwise, she is reporting some improvement and decrease in her paranoia, but also was able to share the obvious lingering issues of paranoia and psychosis. Mental Status Exam MSE Comments: This is an obese, white female, with adequate dress, grooming, and eye contact. No abnormal movements except for improving psychomotor retardation. More cooperative with exam in no acute distress. Speech was more normal rate and volume. Mood described as a little better; affect less guarded and congruent. Thought process, organized. Thought content: patient denied any suicidal or homicidal ideation, there were no delusions reported but there are paranoid and persecutory delusions noted. She denies auditory or visual hallucinations. Attention and concentration appear intact. Memory is unreliable but none were formally tested. Alert and oriented times x 3. Insight and judgment are impaired, but improving. Vitals/I&O/Wt Last Vital Signs Temp 97.3 F L 01/21/20 20:16 Pulse 78 01/21/20 20:16 Resp 16 01/21/20 20:16 BP 140/95 01/21/20 20:16 Pulse Ox 97 01/21/20 20:16 Weight last 48 hrs Weight 102.739 kg Data NPU : 01/07/20 15:48 01/07/20 15:48 A&P Additional A&P Information (1) Psychotic depression: This is a 34 year old, white female, with schizoaffective disorder, who presents with confusion to pre-hospital events, but being adherent to the medication here on the unit. Continue current medication. Continue q 15-minute checks for safety. Encourage individual, group, and milieu therapy. Involuntary Hold Information 96 Hour Hold: 96 Hour Involuntary Admission: No Attestations NPU Medical Necessity Statement*: Inpatient hospitalization is medically necessary and the clinically appropriate intervention at this time. We will monitor medications and titrate as indicated. Likely length of stay 3-5 days. Coding Level of Care Code Acute Collections Representative for Dea Kay
[2020-01-21] MEDS: OLANZapine 5 mg ODT PO (18:11)
--- NOTE | 2020-01-21 18:11 | PC.NURSE ---
Addendum entered by Lilia Andrews LPN 01/21/20 18:45: MEDICATION EFFECTIVE. NO FURTHER C/O AGITATION/ANXIETY. Original Note: PRN ZYPREXA ZYDIS ZYPREXA ZYDIS 5MG PO PER PATIENT C/O AGITATION/ANXIETY. WILL CONTINUE TO MONITOR FOR MEDICATION EFFECTIVENESS.
[2020-01-21 20:16] VITALS: BP 140/95; PULSE 78; RESP 16; TEMP 36.3; O2SAT 97
[2020-01-21] MEDS: trazodone 50 mg Tablet PO (21:42)
[2020-01-21] MEDS: hyDROXYzine 25 mg Capsule 50 MG PO (21:43)
--- NOTE | 2020-01-22 03:44 | PC.NURSE ---
At HS, pt was given prn trazodone and vistaril per request.
[2020-01-22 06:00] VITALS: BP 122/86; PULSE 89; RESP 15; TEMP 38.4; O2SAT 96
[2020-01-22] MEDS: ziprasidone hcl 20 mg Capsule 60 MG PO ×2 (06:11→18:19)
[2020-01-22] MEDS: lamoTRIgine 100 mg Tablet PO (09:05)
[2020-01-22] MEDS: paliperidone ER 6 mg Tablet PO (09:05)
[2020-01-22] MEDS: lamoTRIgine 25 mg Tablet 50 MG PO (09:05)
[2020-01-22] MEDS: meloxicam 7.5 mg tablet PO (09:05)
[2020-01-22] MEDS: diphenhydrAMINE 25 mg Capsule PO ×2 (09:05→18:19)
--- NOTE | 2020-01-22 13:36 | PM.NPN ---
Subjective NPU Subjective: Interval history: Kenan presents today reporting that she is still feeling somewhat overwhelmed with all there is to do, focusing on how she is going to manage finding a place and getting a car, and all the different actions she will need to take to get things back on track for herself. We again refocused the conversation of getting well as the standard around which everything needs to be centered. She understood that but has the challenge of getting herself to slow down when her anxiety is so high about the other things. In keeping with the last couple days, although she worries about whether she will get well, there are outward appearances that suggest, at the very least, she is making progress. She it tolerating the medication without side effects. The rash on her arms has cleared up. She is eating and sleeping well. Mental Status Exam MSE Comments: This is an obese, white female, with adequate dress, grooming, and eye contact. No abnormal movements except for improving psychomotor retardation. More cooperative with exam in no acute distress. Speech was more normal rate and volume. Mood described as a little stressed; affect less guarded and congruent. Thought process, organized. Thought content: patient denied any suicidal or homicidal ideation, there were no delusions reported but there are paranoid and persecutory delusions noted. She denies auditory or visual hallucinations. Attention and concentration appear intact. Memory is more reliable but none were formally tested. Alert and oriented times x 3. Insight and judgment are improving. Vitals/I&O/Wt Last Vital Signs Temp 97.9 F 01/22/20 20:37 Pulse 78 01/22/20 20:37 Resp 18 01/22/20 20:37 BP 135/83 01/22/20 20:37 Pulse Ox 97 01/22/20 20:37 Data NPU : 01/07/20 15:48 01/07/20 15:48 A&P Additional A&P Information (1) Psychotic depression: This is a 34 year old, white female, with schizoaffective disorder, who presents with confusion to pre-hospital events, but being adherent to the medication here on the unit. Continue current medication. Continue q 15-minute checks for safety. Encourage individual, group, and milieu therapy. Involuntary Hold Information 96 Hour Hold: 96 Hour Involuntary Admission: No Attestations NPU Medical Necessity Statement*: Inpatient hospitalization is medically necessary and the clinically appropriate intervention at this time. We will monitor medications and titrate as indicated. Likely length of stay 3-5 days. Coding Level of Care Code Acute Bath Design Sales Consultant for Dea Kay
[2020-01-22 14:00] VITALS: BP 128/86; PULSE 85; RESP 20; TEMP 37.2; O2SAT 97
[2020-01-22] MEDS: OLANZapine 5 mg ODT PO (16:23)
--- NOTE | 2020-01-22 16:26 | PC.NURSE ---
PRN ZYPREXA ZYDIS ZYPREXA ZYDIS 5MG PO PER PATIENT C/O AGITATION/ANXIETY. WILL CONTINUE TO MONITOR FOR MEDICATION EFFECTIVENESS.
--- NOTE | 2020-01-22 17:30 | PC.NURSE ---
PRN ZYPREXA ZYDIS FOLLOW UP MEDICATION EFFECTIVE. NO FURTHER C/O ANXIETY.
[2020-01-22] MEDS: acetaminophen 325 mg Tablet 650 MG PO (19:40)
[2020-01-22 20:37] VITALS: BP 135/83; PULSE 78; RESP 18; TEMP 36.6; O2SAT 97
[2020-01-22] MEDS: trazodone 50 mg Tablet PO (21:39)
[2020-01-22] MEDS: hyDROXYzine 25 mg Capsule 50 MG PO (21:39)
[2020-01-23 06:00] VITALS: BP 130/68; PULSE 70; RESP 17; TEMP 36.6; O2SAT 92
[2020-01-23] MEDS: ziprasidone hcl 20 mg Capsule 60 MG PO ×2 (06:20→16:31)
[2020-01-23] MEDS: meloxicam 7.5 mg tablet PO (08:42)
[2020-01-23] MEDS: paliperidone ER 6 mg Tablet PO (08:42)
[2020-01-23] MEDS: lamoTRIgine 25 mg Tablet 50 MG PO (08:42)
[2020-01-23] MEDS: diphenhydrAMINE 25 mg Capsule PO ×2 (08:42→16:31)
[2020-01-23] MEDS: lamoTRIgine 100 mg Tablet PO (08:43)
[2020-01-23 14:00] VITALS: BP 128/86; PULSE 95; RESP 18; TEMP 37.5; O2SAT 97
--- NOTE | 2020-01-23 17:10 | P.PN_ITS ---
Subjective NPU Subjective: Interval history: Kenan presents today reporting that she is doing okay. She continues to be focused on trying to control some things that are outside of her control. She got a pamphlet of information for medical legal investigator, which she had been requesting in regards to her vehicle. But she was open to some recommendations that she solicited herself as to whether she needed to be worried about that. Once again, I spent time working with her to focus on the most important thing, which is that we get to a place that she is functioning better mentally, so that she can manage different challenges in her life. So, instead of worrying about medical legal investigator and the vehicle, which likely will work itself out, I urged her to focus on being well and taking her medication and m aking sure that her overall mental health functioning is as good as it can be. We then spoke about how far from here she would be willing to go, which led to a conversation about how far she had ever been in her life, and she was very open in sharing her experience of traveling in [place]. Mental Status Exam MSE Comments: This is an obese, white female, with adequate dress, grooming, and eye contact. No abnormal movements. Cooperative with exam in no acute distress. Speech was more normal rate and volume. Mood described as a little stressed; affect congruent, with greater range. Thought process, organized. Thought content: patient denied any suicidal or homicidal ideation, there were no delusions reported but much less paranoid and persecutory delusions noted. She denies auditory or visual hallucinations. Attention and concentration appear intact. Memory is more reliable but none were formally tested. She is alert and oriented times x 3. Insight and judgment are improving. Vitals/I&O/Wt Last Vital Signs Temp 98.0 F 01/23/20 20:53 Pulse 80 01/23/20 20:53 Resp 18 01/23/20 20:53 BP 145/96 01/23/20 20:53 Pulse Ox 97 01/23/20 20:53 Data NPU : 01/07/20 15:48 01/07/20 15:48 A&P Additional A&P Information (1) Psychotic depression: This is a 34 year old, white female, with schizoaffective disorder, who presents with improving mental status, decreasing psychosis and overall slow improvement on the medications. Continue current medication. Continue q 15-minute checks for safety. Encourage individual, group, and milieu therapy. Involuntary Hold Information 96 Hour Hold: 96 Hour Involuntary Admission: No Attestations NPU Medical Necessity Statement*: Inpatient hospitalization is medically necessary and the clinically appropriate intervention at this time. We will monitor medications and titrate as indicated. Likely length of stay 2-4 days. Coding Level of Care Code Acute Certified Pathology Assistant for Dea Kay
[2020-01-23 20:53] VITALS: BP 145/96; PULSE 80; RESP 18; TEMP 36.7; O2SAT 97
[2020-01-23] MEDS: trazodone 50 mg Tablet PO (21:12)
[2020-01-23] MEDS: hyDROXYzine 25 mg Capsule 50 MG PO (21:12)
[2020-01-23] MEDS: haloperidol 5 mg Tablet PO (22:36)
--- NOTE | 2020-01-23 23:00 | PC.NURSE ---
Pt given PRN meds at HS as follows per request: Haldol, Tylenol, Trazodone, Vistaril.
[2020-01-24 06:00] VITALS: BP 133/88; PULSE 68; RESP 15; TEMP 36.7; O2SAT 98
[2020-01-24] MEDS: ziprasidone hcl 20 mg Capsule 60 MG PO ×2 (06:31→17:11)
[2020-01-24] MEDS: paliperidone ER 6 mg Tablet PO (08:32)
[2020-01-24] MEDS: meloxicam 7.5 mg tablet PO (08:32)
[2020-01-24] MEDS: lamoTRIgine 100 mg Tablet PO (08:32)
[2020-01-24] MEDS: lamoTRIgine 25 mg Tablet 50 MG PO (08:32)
[2020-01-24] MEDS: diphenhydrAMINE 25 mg Capsule PO ×2 (08:32→17:11)
--- NOTE | 2020-01-24 09:20 | PC.NURSE ---
Kenan was resting in her room. Once she received medication she said that she wants to get out of here. She would like to speak to Shashi about getting her guardian situation resolved.
--- NOTE | 2020-01-24 11:02 | PM.NPN ---
Subjective NPU Subjective: Interval history: Kenan presents today reporting that she is feeling much more calm and at peace, and that her psychosis is resolving, and her paranoia is resolving. She is actually feeling so much less stressed. She was able to share a paranoia she was having about this expert medical writer, having believed, which is probably true, that this expert medical writer took care of her, at one point, in 2018 in [place], [place] at [facility] [place]; she then was wondering what I was doing at this hospital, in a very paranoid fashion, and if I was safe, given that I am here now, as that did not make sense to her. She was able to even laugh about it, and entertain the idea of possibly going back to her parents, which is a big step for her. We discussed the risks, benefits, and alternatives of considering the injection so that she is guaranteed to take her medication, and she understood and agreed to consider the shot, as documented in this note. Mental Status Exam MSE Comments: This is an obese, white female, with adequate dress, grooming, and eye contact. No abnormal movements. Cooperative with exam in no acute distress. Speech was more normal rate and volume. Mood described as a much better; affect congruent, with greater range. Thought process, organized. Thought content: patient denied any suicidal or homicidal ideation, there were no delusions reported but much less paranoid and persecutory delusions noted. She denies auditory or visual hallucinations. Attention and concentration appear intact. Memory is more reliable but none were formally tested. She is alert and oriented times x 3. Insight and judgment are improving. Vitals/I&O/Wt Last Vital Signs Temp 97.5 F L 01/24/20 20:29 Pulse 73 01/24/20 20:29 Resp 15 01/24/20 20:29 BP 139/93 01/24/20 20:29 Pulse Ox 96 01/24/20 20:29 Data NPU : 01/07/20 15:48 01/07/20 15:48 A&P Additional A&P Information (1) Psychotic depression: This is a 34 year old, white female, with schizoaffective disorder, who presents with improving mental status, decreasing psychosis and overall slow improvement on the medications. Continue current medication. We discussed her possibly trying the injection for invega. Continue q 15-minute checks for safety. Encourage individual, group, and milieu therapy. Involuntary Hold Information 96 Hour Hold: 96 Hour Involuntary Admission: No Attestations NPU Medical Necessity Statement*: Inpatient hospitalization is medically necessary and the clinically appropriate intervention at this time. We will monitor medications and titrate as indicated. Likely length of stay 1-3 days. Coding Level of Care Code Acute Farm Appraiser for Dea Kay
[2020-01-24 14:00] VITALS: BP 126/85; PULSE 72; RESP 20; TEMP 36.3; O2SAT 97
[2020-01-24 20:29] VITALS: BP 139/93; PULSE 73; RESP 15; TEMP 36.4; O2SAT 96
[2020-01-24] MEDS: hyDROXYzine 25 mg Capsule 50 MG PO (23:14)
[2020-01-24] MEDS: trazodone 50 mg Tablet PO (23:14)
--- NOTE | 2020-01-24 23:16 | PC.NURSE ---
PRN TRAZODONE & VISTARIL PT REQUESTING SLEEP AID AND ANXIETY MEDICATION. TRAZODONE 50 MG PO & VISTARIL 50 MG ADMINISTERED. WILL MONITOR FOR MEDICATION EFFECTIVENESS.
[2020-01-25 06:00] VITALS: BP 150/77; PULSE 69; RESP 13; TEMP 36.4; O2SAT 95
[2020-01-25] MEDS: ziprasidone hcl 20 mg Capsule 60 MG PO (06:13)
[2020-01-25] MEDS: lamoTRIgine 100 mg Tablet PO (08:30)
[2020-01-25] MEDS: meloxicam 7.5 mg tablet PO (08:30)
[2020-01-25] MEDS: lamoTRIgine 25 mg Tablet 50 MG PO (08:30)
[2020-01-25] MEDS: paliperidone ER 6 mg Tablet PO (08:30)
[2020-01-25 12:16] VITALS: BP 136/91; PULSE 111; RESP 18; TEMP 36.4; O2SAT 96
[2020-01-25 14:58] VITALS: BP 136/91; PULSE 111; RESP 18; TEMP 36.4; O2SAT 96
[2020-01-25] MEDS: paliperidone palmitate 234 mg Syringe IM (15:18)
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
--- NOTE | 2020-01-25 15:27 | PC.SOCIAL ---
Important Medicare Message Updated copy of previously signed page 2 Important Medicare Message given to patient.
== END 2020-01-25 15:53 | disposition home or self-care (01) | DRG 885 ==
LOC: ER 16:16 → NP 17:25
PROVIDERS: Emergency Medicine; PCP Nurse Practitioner Family; Visit Provider Psychiatry & Neurology Psychiatry
DX: F32.3 Major depressive disorder, single episode, severe with psychotic features (principal); Z87.891 Personal history of nicotine dependence
CPT/HCPCS: 12345; 36415; 80053; 80307; 81025; 84443; 85025; 96372; 99284